=== PATIENT | female | born 1960 | race Caucasian/White ===

== ENCOUNTER 2020-08-07 10:03 | Emergency (ER) | payer BC, SELFPAY ==
[2020-08-07 10:01] VITALS: BP 128/74; PULSE 77; RESP 12; TEMP 36.1; O2SAT 97
[2020-08-07] MEDS: FAMOTIDINE 20 MG/2 ML VIAL IV PUSH (10:41)
[2020-08-07] MEDS: SODIUM CHLORIDE 0.9% IV 1,000 ML 999 ML IV CONT (10:44)
[2020-08-07 10:53] LABS: Basophils Absolute Auto 0.1 K/mm3 (0.0-0.1); Basophils Percent Auto 0.5 % (0.2-1.2); Eosinophils Absolute Auto 0.2 K/mm3 (0-0.3); Eosinophils Percent Auto 1.6 % (0-4.4); Hematocrit 43.8 % (37.0-47.0); Hemoglobin 14.2 g/dL (12.0-15.0); Immature Granulocyte Absolute 0.04 K/mm3 (0.00-0.031); Immature Granulocyte Percent A 0.4 % (0-0.5); Lymphocytes Absolute Auto 1.57 K/mm3 (0.9-3.2); Lymphocytes Percent Auto 14.1 % (18.3-44.2); Mean Corpuscular HGB Conc 32.4 g/dl (32-36); Mean Corpuscular Hemoglobin 28.1 pg (26-34); Mean Corpuscular Volume 86.7 fl (80-100); Mean Platelet Volume 9.5 fl (7.4-10.4); Monocytes Absolute Auto 0.8 K/mm3 (0.1-0.6); Monocytes Percent Auto 7.6 % (2.6-8.5); Neutrophils Absolute Auto 8.4 K/mm3 (1.3-6.7); Neutrophils Percent Auto 75.8 % (45.5-73.1); Platelet Count Result 238 k/mm3 (150-375); Red Blood Count 5.05 M/mm3 (4.2-5.4); Red Cell Distribution Width 13.9 % (11.5-14.5); White Blood Count 11.1 K/mm3 (4.5-10.0)
[2020-08-07] MEDS: METOCLOPRAMIDE HCL INJ 10 MG/2 ML VIAL (11:05)
[2020-08-07 11:06] LABS: INR 0.9; Prothrombin Time 12.4 Seconds (11.1-14.7)
[2020-08-07] MEDS: METOCLOPRAMIDE HCL 10 MG TABLET PO (11:06)
[2020-08-07 11:07] LABS: Partial Thromboplastin Time 26.2 SECONDS (22.3-36.8)
[2020-08-07 11:17] LABS: Alanine Aminotransferase 18 U/L (4-35); Albumin Level 3.9 g/dL (3.5-5.1); Alkaline Phosphatase 62 U/L (38-126); Anion Gap 3 mmol/L (8-16); Aspartate Amino Transferase 19 U/L (14-36); Bilirubin,Total 0.4 mg/dL (0.2-1.3); Blood Urea Nitrogen 16 mg/dL (7-17); Calcium 10.1 mg/dL (8.4-10.2); Carbon Dioxide 33 mmol/L (22-30); Chloride 103 mmol/L (98-107); Estimated CRCL calculation 65 ml/min; Estimated Glomerular Filt Rate > 60; Glucose 107 mg/dL (65-105); Potassium 4.2 mmol/L (3.4-5.0); Sodium 139 mmol/L (137-145)
[2020-08-07 11:30] LABS: Erythrocyte Sedimentation Rate 8 mm/hr (0-20)
[2020-08-07] MEDS: MORPHINE SULFATE (*CRX) 4 MG/ML INJ IV PUSH (11:30)
[2020-08-07 11:31] VITALS: BP 116/68; PULSE 69; RESP 13; O2SAT 98
[2020-08-07 11:38] LABS: CRP < 0.5 mg/dL (<1.0)
--- NOTE | 2020-08-07 11:52 | PC.NURSE ---
[facility] accepted transfer ETA 1330 Trip#[id number]
--- NOTE | 2020-08-07 12:00 | ED.HA ---
HPI - Headache General Chief Complaint: Headache <Allen Bundy PA-C - Last Filed: 08/07/20 12:09> Stated Complaint: CORDOBA <Allen Bundy PA-C - Last Filed: 08/07/20 12:09> Time Seen by Provider: 08/07/20 10:10 <IQRA Moncada Last Filed: 08/07/20 12:09> Source: patient and family <Allen Bundy PA-C - Last Filed: 08/07/20 12:09> Mode of arrival: EMS <Allen Bundy PA-C - Last Filed: 08/07/20 12:09> Limitations: no limitations <Allen Bundy PA-C - Last Filed: 08/07/20 12:09> History of Present Illness HPI Narrative: Patient is a 60-year-old female who presents to emergency department for evaluation of frontal headache for the last 4 days behind the eyes notes history of migraines states this is more moderate severe than usual patient tried home medications with no improvement on the patient had lumbar surgery performed by neurosurgery at [facility]. Patient on arrival in no distress does not appear uncomfortable patient notes she has had some emesis. Denies URI symptoms <Allen Bundy PA-C - Last Filed: 08/07/20 12:09> Related Data Home Medications: Home Medications Medication Instructions Recorded Confirmed escitalopram oxalate 10 mg PO DAILY 08/07/20 <Allen Bundy PA-C - Last Filed: 08/07/20 12:09> Allergies/Adverse Reactions: Allergies Allergy/AdvReac Type Severity Reaction Status Date / Time SULFAMETHOXAZOLE (Generic Allergy Y Uncoded 01/28/03 13:23 Allergy) <Allen Bundy PA-C - Last Filed: 08/07/20 12:09> Review of Systems Review of Systems: All systems reviewed & are unremarkable except as noted in HPI and below <Allen Bundy PA-C - Last Filed: 08/07/20 12:09> PMFSH Past Medical History Medical History: Medical History (Updated 08/07/20 @ 12:08 by Allen Bundy PA-C) Migraine headache <IQRA Moncada Last Filed: 08/07/20 12:09> Surgical History Surgical History: Surgical History (Updated 08/07/20 @ 12:04 by Allen Bundy PA-C) History of orthopedic surgery <Allen Bundy PA-C - Last Filed: 08/07/20 12:09> Exam Narrative: Exam Narrative: GENERAL: Well-appearing, well-nourished, and in no acute distress. HEAD: Normocephalic, atraumatic. EYES: PERRLA and EOMI. ENT: Nares clear, no rhinorrhea or epistaxis. Mucous membranes moist. CHEST: Clear to auscultation. No respiratory distress. No wheezes rales or rhonchi HEART: Regular rate and rhythm. No murmur heard. Normal peripheral pulses. ABDOMEN: Soft, nontender, nondistended EXTREMITIES: Normal range of motion. No edema. SKIN: Warm, dry, no rash. Patient's incision proximally is slightly open leaking crystal clear liquid concerning for spinal fluid leak slight erythema on the margins no surrounding erythema NEURO: No focal deficits. Alert and oriented x3. Cranial nerves II through XII grossly intact. Motor and sensory intact and symmetrical in the extremities PSYCH: Normal mood and affect. <Allen Bundy PA-C - Last Filed: 08/07/20 12:09> Course Course Emergency Course: Patient in the room aware of case findings treatment plan diagnosis agreeing to transfer to [place] for evaluation by neurosurgery was hydrated and given pain management in the emergency department will be sent by ambulance <Allen Bundy PA-C - Last Filed: 08/07/20 12:09> PHOTO TECHNICIAN/PA Physician Supervision Patient with recent spinal surgery, presenting with headache, found to have what is concerning for possible spinal fluid leak versus cervical metallic leak found on physical exam over incision site and lumbar spine. Patient is neurologically intact without any neurological deficits. Spoke with neurosurgeon [facility] at [facility] who recommends transfer to their facility for evaluation. For this patient encounter, I reviewed the PHOTO TECHNICIAN or PA documentation, treatment plan, and medical decision making; and
--- NOTE | 2020-08-07 12:02 | PC.NURSE ---
Guicho Jo, Joseph, Alfa Bailey and Rudy all declined transfer to [facility] E[facility] accepted
[2020-08-07 12:32] VITALS: BP 106/60; PULSE 76; RESP 12; O2SAT 94
[2020-08-07 14:31] VITALS: BP 121/66; PULSE 66; RESP 16; O2SAT 97
[2020-08-07 15:17] VITALS: BP 114/69; PULSE 68; RESP 13; O2SAT 98
== END 2020-08-07 15:20 | disposition short-term general hospital (02) ==
PROVIDERS: Emergency Medicine Emergency Medical Services; Emergency Provider Emergency Medicine; PCP Nurse Practitioner Family
DX: G97.82 Other postprocedural complications and disorders of nervous system (principal); R51.9 Headache, unspecified
CPT/HCPCS: 36415; 80053; 85025; 85610; 85652; 85730; 86140; 96361; 96374; 96375; 99285; A9270; J0131; J2270; J2765; J7030

== ENCOUNTER → 2023-07-01 07:34 | Outpatient (CLI) | payer MEDICARE, SELFPAY ==
--- NOTE | ~2023-07-01 | MM_ITS ---
EXAMINATION: MM screening wade BI w refugio HISTORY: Screening mammogram TECHNIQUE: Craniocaudal and mediolateral oblique 3-D tomosynthesis images were obtained and synthetic 2-D images were generated. CAD analysis was submitted and interpreted. COMPARISON: No prior mammogram is available for comparison at this institution. BREAST PARENCHYMAL COMPOSITION:The breasts are heterogeneously dense, which may obscure small masses. FINDINGS: No suspicious mass, calcification, or architectural distortion are identified in either kirk ast to suggest malignancy. IMPRESSION: No mammographic evidence of malignancy. Recommend routine screening mammography in one year. BI-RADS Category 1: Negative Reviewed, dictated and finalized at location . SAFETY REPRESENTATIVE
== END ==
PROVIDERS: PCP Nurse Practitioner Family; Visit Provider Nurse Practitioner Family
DX: Z12.31 Encounter for screening mammogram for malignant neoplasm of breast (principal)
CPT/HCPCS: 77063; 77067

== ENCOUNTER 2023-11-30 13:05 | Outpatient (CLI) | payer MEDICARE, SELFPAY ==
--- NOTE | ~2023-11-30 | DEXA_ITS ---
Bone Density Report Name: KIAH BAXTER Age: 63 Sex: Female Ethnicity: White Date of : 1960 Indication: postmenopausal; screening for osteoporosis; hysterectomy; secondary osteoporosis; Referring Provider: ELIUD JUNG Study: Bone densitometry was performed. Exam Date: November 30, 2023 Accession number: [id number] Bone Density: Region BMD T-score Z-score Classification AP Spine (L1, L4) 0.827 -1.9 -0.1 Osteopenia Femoral Neck (Left) 0.465 -3.5 -1.9 Osteoporosis Total Hip (Left) 0.635 -2.5 -1.3 Osteoporosis Femoral Neck (Right) 0.494 -3.2 -1.7 Osteoporosis Total Hip (Right) 0.598 -2.8 -1.6 Osteoporosis Total Hip Mean 0.617 -2.7 -1.5 Osteoporosis World Health Organization criteria for BMD impression classify patients as: Normal (T-score at or above -1.0), Osteopenia (T-score between -1.0 and -2.5), or Osteoporosis (T-score at or below -2.5). 10-year Fracture Risk: FRAX not reported because: Some T-score for Spine Total or Hip Total or Femoral Neck at or below -2.5 Treated for osteoporosis Clinical Information Provided by Patient: Has secondary osteoporosis Is being treated for osteoporosis Has used the following medications: Boniva (i.e. ibandronate), Vitamin D, Calcium Has the following medical conditions: Hysterectomy Patient maximum height was 63 Menopause Age: 38 Drinks caffeinated beverages Onset of menses at age 11 Number of children 2 Impression: The patient has osteoporosis, based on the Left Femoral Neck T-score. Discussion: It is important to ask patients whether they are taking their medications and to encourage continued and appropriate compliance with their osteoporosis therapies to reduce fracture risk. It is also important to review their risk factors and encourage appropriate calcium and vitamin D intakes, exercise, fall prevention and other lifestyle measures. Follow-Up: Consider a repeat BMD and Vertebral Fracture Assessment (VFA) exam in 2 years or sooner if medically necessary, to reassess this patient's status. Reported by: NIKKI on 11/30/2023 1:14:00 PM. Reviewed, dictated and finalized at location AOmayra RODRIGUEZ
== END 2023-11-30 13:06 ==
LOC: MICIMG 13:06
PROVIDERS: PCP Nurse Practitioner Family; Visit Provider Nurse Practitioner Family
DX: Z78.0 Asymptomatic menopausal state (principal); M85.89 Other specified disorders of bone density and structure, multiple sites; M81.0 Age-related osteoporosis without current pathological fracture
CPT/HCPCS: 77080